=== PATIENT | male | born 1940 | race Caucasian/White ===

== ENCOUNTER 2018-05-15 14:05 | Emergency (ER) | payer MEDICARE, BC ==
[~2018-05-15] VITALS: Ht 175.3 cm; Wt 136.1 kg
== END 2018-05-15 14:20 | disposition home or self-care (01) ==
LOC: FSED 14:05 → EDBD 14:05 → FSED 14:20
DX: H91.92 Unspecified hearing loss, left ear (principal); H72.2X2 Other marginal perforations of tympanic membrane, left ear; Z85.820 Personal history of malignant melanoma of skin
CPT/HCPCS: 99282